=== PATIENT | female | born 1950 | race Caucasian/White ===

== ENCOUNTER → 2016-07-18 | Outpatient (CLI) | payer BC | LOC: FIMAGING 13:01 | DX: Z12.31 Encounter for screening mammogram for malignant neoplasm of breast (principal); Z85.42 Personal history of malignant neoplasm of other parts of uterus; Z85.41 Personal history of malignant neoplasm of cervix uteri | CPT/HCPCS: G0202 ==

== ENCOUNTER 2017-03-24 10:18 | Emergency (ER) | payer OTHER, BC ==
[2017-03-24 10:27] VITALS: BP 156/79; PULSE 91; RESP 16; TEMP 100.4; O2SAT 93
--- NOTE | 2017-03-24 11:11 | EDPHY ---
H & P Time Seen by Provider: 03/24/17 10:38 HPI/ROS: Chief complaint. Cough, fever, achy HPI. 66-year-old female presents emergency department with 2-3 days of above symptoms. She feels there gradually worsening. She has some congestion. Ears hurt with coughing. Slight sore throat with coughing. Her chest is sore from coughing but not worse with exertion or deep breathing. Nausea without vomiting or diarrhea. No recent travel or known exposures. She has had bronchitis in the past. ROS Constitutional. Fever Eyes. no problems with vision ENT. no sore throat, no nasal drainage Cardiovascular. no chest pain Respiratory. Cough without shortness of breath Abdominal. no abdominal pain, no nausea/vomiting, no diarrhea . no problems urinating MS. Achy Skin. no rash Lymph. no swollen glands Neuro. no headache, no dizziness, no difficulty walking or with speech Past Medical/Surgical History: Past medical history hypertension, anxiety, scoliosis, orthopedic surgeries, uterine and cervical cancer in the past Social History: , nonsmoker, no alcohol Smoking Status: Never smoked Physical Exam: General Appearance: Alert well-developed female mild distress vital signs show temp 38 degrees Eyes: Pupils equal and round no pallor or injection. ENT, tympanic membranes are normal. Pharynx slightly injected without exudate. Mucous membranes are moist Respiratory: No retractions. Mild inspiratory expiratory rhonchi Cardiovascular: Regular rate and rhythm. Gastrointestinal: Abdomen is soft and nontender, no masses, bowel sounds normal. Neurological: Awake and alert, sensory and motor exams grossly normal. Skin: Warm and dry, no rashes. Musculoskeletal: Neck is supple nontender. Extremities symmetrical, full range of motion. Psychiatric: Patient is oriented X 3, there is no agitation. Constitutional: Initial Vital Signs Temperature (C) 38 C 03/24/17 10:19 Heart Rate 91 03/24/17 10:19 Respiratory Rate 16 03/24/17 10:19 Blood Pressure 156/79 H 03/24/17 10:19 O2 Sat (%) 93 03/24/17 10:19 O2 Delivery Mode Room Air Allergies/Adverse Reactions: Penicillins Allergy (Verified 03/24/17 10:27) Home Medications: Medication Instructions Recorded Fish Oil 1,000 mg EC Softgel 03/28/11 LORazepam [Ativan] 1 mg PO DAILY 03/28/11 Multivitamin [Animal Shapes] 1 each PO DAILY 03/28/11 OXcarbazepine [Trileptal] 150 mg PO BID 03/28/11 oxyCODONE/APAP 5/325 [Percocet 1 tab PO PRN 03/28/11 5/325] Ibuprofen [Motrin (*)] 600 mg PO Q6-8PRN PRN #20 tab 10/03/11 oxyCODONE/APAP 5/325 [Percocet 1 - 2 tab PO Q4-6PRN PRN #14 tab 10/03/11 5/325] Azithromycin [Zithromax] 250 mg PO DAILY #6 tab 03/24/17 Lisinopril 03/24/17 Norvasc 03/24/17 Medical Decision Making - Diagnostics Imaging Results: Chest x-ray interpreted by me shows slight streaking in the right lower lobe but no obvious pneumonia Procedures: Flu swab is negative ED Course/Re-evaluation: Re-evaluation at 11:15 a.m.. The patient and I discussed imaging and lab results. We discussed treatment plan including criteria for return importance of follow-up and further evaluation. She expresses understanding and agreement Differential Diagnosis: I considered pneumonia, bronchitis, upper respiratory infection, influenza - Data Points Laboratory Results: 03/24/17 10:40 Influenza A,B Rapid NEGATIVE FOR FLU (NEGATIVE) Departure - Departure Disposition: Home, Routine, Self-Care Clinical Impression: Acute bronchitis Qualifiers: Bronchitis organism: unspecified organism Qualified Code(s): J20.9 - Acute bronchitis, unspecified Condition: Good Instructions: Acute Bronchitis (ED) Additional Instructions: Drink plenty of fluids and stay hydrated. Ibuprofen 600 mg every 6 hr for fever. Zithromax as antibiotic. Return for worsening symptoms. Recheck in 2 days if not improving Referrals: Magdalena Flor PA [Primary Care Provider] - 2-3 days, if not improved Prescriptions: Azithromycin [Zithromax] 250 mg PO DAILY #6 tab
== END 2017-03-24 11:24 | disposition home or self-care (01) ==
LOC: CED 10:18
DX: J20.9 Acute bronchitis, unspecified (principal); I10 Essential (primary) hypertension
CPT/HCPCS: 71020-PO; 87400-PO